=== PATIENT | male | born 1965 | race Caucasian/White ===

== ENCOUNTER → 2019-09-26 | Outpatient (CLI) | payer SELFPAY ==
--- NOTE | 2019-09-26 15:17 | Diagnostic Imaging Report ---
INDICATION: Abdominal pain TECHNIQUE: Continuous helical transaxial imaging of the abdomen and pelvis was obtained from the lung bases to the pubic symphysis. No intravenous contrast was administered. Coronal 2-D reformats were also obtained. Automatic Exposure Control was utilized. Total Dose length Product (DLP): 438.[address] Dose Index Volume (CTDIvol): 7 mGy Comparison: none FINDINGS: Lungs: The visualized lung bases are clear. Liver: Unremarkable Gallbladder/biliary system: No gallstones are identified. There is no evidence of intrahepatic or extrahepatic biliary ductal dilatation. Spleen: Unremarkable Pancreas: Unremarkable Kidneys/Bladder: There is enlargement of the right kidney with perinephric and periureteral stranding with moderate hydroureteronephrosis secondary to a 3 mm stone in the distal ureter about a centimeter from the UVJ. In addition there is the suggestion of hypodensity in the right kidney which may be cystic but not adequately evaluated on the current examination. There is no hydronephrosis on the left. The bladder is nondistended.. Adrenal glands: Unremarkable Bowel: Unremarkable. Aorta/IVC: Mild calcification noted involving aorta. No aneurysm seen. Peritoneum: There is no free fluid. Bones: Unremarkable IMPRESSION: Mild to moderate right hydroureteronephrosis secondary to a 3 mm distal ureteral stone. Other incidental findings as above Note: Evaluation of solid organs is limited on non contrast imaging. The CT scanner at [facility] is accredited by the [employer] and the scans are performed using dose optimization techniques as appropriate to a performed exam including Automatic Exposure control.
== END | disposition home or self-care (01) ==
LOC: CAT 12:22
DX: R10.9 Unspecified abdominal pain (principal); N13.2 Hydronephrosis with renal and ureteral calculous obstruction
CPT/HCPCS: 74176